=== PATIENT | male | born 1965 | race Caucasian/White ===

== ENCOUNTER 2021-08-23 07:57 | Emergency (ER) | payer MEDICARE ==
[~2021-08-23] VITALS: Ht 180.3 cm; Wt 115.7 kg
[~2021-08-23 07:57] MED LIST: EPIPEN0.3 MG/0.3 IM; Prednisone20 MG PO
[2021-08-23] MEDS ORDERED: PLAVIX75 MG PO (08:33)
[2021-08-23] MEDS ORDERED: HYDHCL25 PO (09:43)
== END 2021-08-23 09:53 | disposition home or self-care (01) ==
LOC: ER 07:57
DX: L27.0 Generalized skin eruption due to drugs and medicaments taken internally (principal); T45.525A Adverse effect of antithrombotic drugs, initial encounter; R60.0 Localized edema; Y92.9 Unspecified place or not applicable; Z87.891 Personal history of nicotine dependence
CPT/HCPCS: A9270

== ENCOUNTER 2021-09-03 01:53 | Emergency (ER) | payer MEDICARE ==
[~2021-09-03] VITALS: Ht 180.3 cm; Wt 113.4 kg
[~2021-09-03 01:53] MED LIST changes: +HYDHCL25 PO; +PLAVIX75 MG PO
[2021-09-03 02:33] LABS: BASOPHILS ABSOLUTE AUTO 0.07 K/mm3 (0.00-0.23); BASOPHILS PERCENT AUTO 0 % (0-2); EOSINOPHILS ABSOLUTE AUTO 0.11 K/mm3 (0.00-0.68); EOSINOPHILS PERCENT AUTO 1 % (0-6); Hematocrit 38.4 % (37.0-53.0); Hemoglobin 13.1 g/dL (13.5-17.5); IMMATURE GRAN ABSOLUTE AUTO 0.24 K/mm3 (0.00-0.10); IMMATURE GRAN PERCENT AUTO 1 % (0-1); LYMPHOCYTES ABSOLUTE AUTO 0.92 K/mm3 (0.84-5.20); LYMPHOCYTES PERCENT AUTO 5 % (21-46); MONOCYTES ABSOLUTE AUTO 0.97 K/mm3 (0.16-1.47); MONOCYTES PERCENT AUTO 6 % (4-13); Mean Corpuscular HGB 28.5 pg (26.0-34.0); Mean Corpuscular HGB Conc 34.1 g/dL (31.5-36.5); Mean Corpuscular Volume 84 fL (80-100); Mean Platelet Volume 8.8 fL (9.1-12.4); NEUTROPHILS ABSOLUTE AUTO 14.84 K/mm3 (1.96-9.15); NEUTROPHILS PERCENT AUTO 87 % (41-73); Platelet Count 279 K/mm3 (150-400); RDW Coefficient Variation 14.8 % (11.7-14.2); RDW Standard Deviation 45.1 fL (35.1-46.3); White Blood Cell Count 17.15 K/mm3 (4.00-11.30)
[2021-09-03 03:03] LABS: Albumin, Blood 2.3 g/dL (3.4-5.0); Albumin/Globulin Ratio 0.5 (0.8-1.8); Bilirubin, Total 1.3 mg/dL (0.1-1.0); Bun/Creatinine Ratio 15.5 (12.0-20.0); Calcium, Blood 8.6 mg/dL (8.5-10.1); Creatinine, Blood 1.16 mg/dL (0.60-1.20); Globulin, Blood 4.6 g/dL (2.2-4.0); Potassium, Blood 3.6 mmol/L (3.5-5.5); Total Protein, Blood 6.9 g/dL (6.4-8.2)
[2021-09-03 04:54] LABS: Influenza A, PCR NEGATIVE (NEGATIVE); Influenza B, PCR NEGATIVE (NEGATIVE); Resp Syncytial Virus, PCR NEGATIVE (NEGATIVE); SARS-Cov-2 (COVID-19) PCR, MMC NEGATIVE (NEGATIVE)
== END 2021-09-03 07:06 | disposition short-term general hospital (02) ==
LOC: ER 01:53
PROVIDERS: Student in an Organized Health Care Education/Training Program
DX: I72.9 Aneurysm of unspecified site (principal); I82.411 Acute embolism and thrombosis of right femoral vein; R00.0 Tachycardia, unspecified; D72.829 Elevated white blood cell count, unspecified; E87.2 Acidosis; Z88.0 Allergy status to penicillin; Z91.09 Other allergy status, other than to drugs and biological substances; Z79.52 Long term (current) use of systemic steroids; Z79.899 Other long term (current) drug therapy; Z20.822 Contact with and (suspected) exposure to COVID-19
CPT/HCPCS: 0241U; 36415; 71045; 75635; 80053; 83605; 85025; 87040; 87147; 96374-59; 96375-59; 96376-59; 99285-25; J0696; J1170; J1885; J2405; J3370; J7030; J7050; Q9967

== ENCOUNTER 2021-09-24 03:34 | Day surgery (SDC) | payer MEDICARE ==
[~2021-09-24 03:34] MED LIST changes: +AMITRIPTYLINE100 M2 PO; +ASPI81CH PO; +Acetaminophen325 M1 PO; +Calcium Carbon500 MG PO; +Crestor40 MG PO; +DULO60 PO; +FAMO40 PO; +LISI20 PO; +OXYC5 PO; +TRAM50 PO
== END 2021-09-24 10:45 | disposition home or self-care (01) ==
LOC: ATC 03:34
DX: T82.7XXA Infection and inflammatory reaction due to other cardiac and vascular devices, implants and grafts, initial encounter (principal); Y71.8 Miscellaneous cardiovascular devices associated with adverse incidents, not elsewhere classified; I25.10 Atherosclerotic heart disease of native coronary artery without angina pectoris; I10 Essential (primary) hypertension; E78.5 Hyperlipidemia, unspecified; Z87.891 Personal history of nicotine dependence; Z79.899 Other long term (current) drug therapy
CPT/HCPCS: 96374; J0696

== ENCOUNTER 2021-09-24 03:35 | Day surgery (SDC) | payer MEDICARE | END 2021-09-24 23:03 | disposition home or self-care (01) | LOC: WOUND 03:35 | DX: S31.104A Unspecified open wound of abdominal wall, left lower quadrant without penetration into peritoneal cavity, initial encounter (principal); S31.103A Unspecified open wound of abdominal wall, right lower quadrant without penetration into peritoneal cavity, initial encounter; S71.102A Unspecified open wound, left thigh, initial encounter; X58.XXXA Exposure to other specified factors, initial encounter; L02.214 Cutaneous abscess of groin; I73.9 Peripheral vascular disease, unspecified; I87.2 Venous insufficiency (chronic) (peripheral); F12.90 Cannabis use, unspecified, uncomplicated; I10 Essential (primary) hypertension; E78.5 Hyperlipidemia, unspecified; Z88.0 Allergy status to penicillin; Z87.891 Personal history of nicotine dependence | CPT/HCPCS: G0463 ==

== ENCOUNTER 2021-09-25 01:36 | Day surgery (SDC) | payer MEDICARE | END 2021-09-25 13:38 | disposition home or self-care (01) | LOC: ATC 01:36 | DX: T82.7XXA Infection and inflammatory reaction due to other cardiac and vascular devices, implants and grafts, initial encounter (principal); Z79.82 Long term (current) use of aspirin; Z79.01 Long term (current) use of anticoagulants; I25.10 Atherosclerotic heart disease of native coronary artery without angina pectoris; E78.5 Hyperlipidemia, unspecified; I10 Essential (primary) hypertension; Z87.891 Personal history of nicotine dependence | CPT/HCPCS: 96374; J0696 ==

== ENCOUNTER 2021-09-26 00:48 | Day surgery (SDC) | payer MEDICARE | END 2021-09-26 22:54 | disposition home or self-care (01) | LOC: WOUND 00:48 | DX: S31.103A Unspecified open wound of abdominal wall, right lower quadrant without penetration into peritoneal cavity, initial encounter (principal); X58.XXXA Exposure to other specified factors, initial encounter; I73.9 Peripheral vascular disease, unspecified; I87.2 Venous insufficiency (chronic) (peripheral); F12.90 Cannabis use, unspecified, uncomplicated ==

== ENCOUNTER 2021-09-26 00:58 | Day surgery (SDC) | payer MEDICARE | END 2021-09-26 14:10 | disposition home or self-care (01) | LOC: ATC 00:58 | DX: T82.7XXA Infection and inflammatory reaction due to other cardiac and vascular devices, implants and grafts, initial encounter (principal); I25.10 Atherosclerotic heart disease of native coronary artery without angina pectoris; E78.5 Hyperlipidemia, unspecified; I10 Essential (primary) hypertension; Z87.891 Personal history of nicotine dependence; Z79.82 Long term (current) use of aspirin; Z79.01 Long term (current) use of anticoagulants | CPT/HCPCS: 96374; J0696 ==

== ENCOUNTER 2021-09-27 13:55 | Day surgery (SDC) | payer MEDICARE | END 2021-09-27 14:02 | disposition home or self-care (01) | LOC: ATC 13:55 | DX: T82.7XXA Infection and inflammatory reaction due to other cardiac and vascular devices, implants and grafts, initial encounter (principal); Y71.8 Miscellaneous cardiovascular devices associated with adverse incidents, not elsewhere classified; I25.10 Atherosclerotic heart disease of native coronary artery without angina pectoris; I10 Essential (primary) hypertension; E78.5 Hyperlipidemia, unspecified; Z87.891 Personal history of nicotine dependence; Z79.899 Other long term (current) drug therapy | CPT/HCPCS: 96374; J0696 ==

== ENCOUNTER 2021-09-28 13:40 | Day surgery (SDC) | payer MEDICARE | END 2021-09-28 13:48 | disposition home or self-care (01) | LOC: ATC 13:40 | DX: T82.7XXA Infection and inflammatory reaction due to other cardiac and vascular devices, implants and grafts, initial encounter (principal); Y71.8 Miscellaneous cardiovascular devices associated with adverse incidents, not elsewhere classified; I25.10 Atherosclerotic heart disease of native coronary artery without angina pectoris; I10 Essential (primary) hypertension; E78.5 Hyperlipidemia, unspecified; Z87.891 Personal history of nicotine dependence; Z79.02 Long term (current) use of antithrombotics/antiplatelets; Z79.899 Other long term (current) drug therapy | CPT/HCPCS: 96374; J0696 ==

== ENCOUNTER 2021-09-29 01:03 | Day surgery (SDC) | payer MEDICARE | END 2021-09-29 14:16 | disposition home or self-care (01) | LOC: ATC 01:03 | DX: T82.7XXA Infection and inflammatory reaction due to other cardiac and vascular devices, implants and grafts, initial encounter (principal); Z79.82 Long term (current) use of aspirin; Z79.01 Long term (current) use of anticoagulants; I25.10 Atherosclerotic heart disease of native coronary artery without angina pectoris; E78.5 Hyperlipidemia, unspecified; I10 Essential (primary) hypertension; Z87.891 Personal history of nicotine dependence | CPT/HCPCS: 96374; J0696 ==

== ENCOUNTER 2021-09-29 08:00 | Day surgery (SDC) | payer MEDICARE | END 2021-09-29 23:59 | disposition home or self-care (01) | LOC: WOUND 08:00 | DX: S31.501A Unspecified open wound of unspecified external genital organs, male, initial encounter (principal); X58.XXXA Exposure to other specified factors, initial encounter; I73.9 Peripheral vascular disease, unspecified; I87.2 Venous insufficiency (chronic) (peripheral); F12.90 Cannabis use, unspecified, uncomplicated | CPT/HCPCS: 82947; A9270; G0463 ==

== ENCOUNTER 2021-09-30 03:23 | Day surgery (SDC) | payer MEDICARE ==
[2021-09-30 14:42] LABS: BASOPHILS ABSOLUTE AUTO 0.07 K/mm3 (0.00-0.23); BASOPHILS PERCENT AUTO 1 % (0-2); EOSINOPHILS ABSOLUTE AUTO 0.57 K/mm3 (0.00-0.68); EOSINOPHILS PERCENT AUTO 5 % (0-6); Hematocrit 34.9 % (37.0-53.0); Hemoglobin 10.9 g/dL (13.5-17.5); IMMATURE GRAN ABSOLUTE AUTO 0.24 K/mm3 (0.00-0.10); IMMATURE GRAN PERCENT AUTO 2 % (0-1); LYMPHOCYTES ABSOLUTE AUTO 2.63 K/mm3 (0.84-5.20); LYMPHOCYTES PERCENT AUTO 24 % (21-46); MONOCYTES ABSOLUTE AUTO 1.03 K/mm3 (0.16-1.47); MONOCYTES PERCENT AUTO 9 % (4-13); Mean Corpuscular HGB 27.3 pg (26.0-34.0); Mean Corpuscular HGB Conc 31.2 g/dL (31.5-36.5); Mean Corpuscular Volume 87 fL (80-100); Mean Platelet Volume 8.9 fL (9.1-12.4); NEUTROPHILS ABSOLUTE AUTO 6.51 K/mm3 (1.96-9.15); NEUTROPHILS PERCENT AUTO 59 % (41-73); Platelet Count 731 K/mm3 (150-400); RDW Coefficient Variation 15.5 % (11.7-14.2); RDW Standard Deviation 49.2 fL (35.1-46.3); White Blood Cell Count 11.05 K/mm3 (4.00-11.30)
[2021-09-30 14:54] LABS: Albumin, Blood 2.6 g/dL (3.4-5.0); Albumin/Globulin Ratio 0.6 (0.8-1.8); Bilirubin, Total 0.2 mg/dL (0.1-1.0); Bun/Creatinine Ratio 18.8 (12.0-20.0); C-REACTIVE PROTEIN, EXT RANGE 2.69 mg/dL (0.000-0.300); Calcium, Blood 9.2 mg/dL (8.5-10.1); Creatinine, Blood 0.8 mg/dL (0.60-1.20); Globulin, Blood 4.4 g/dL (2.2-4.0); Potassium, Blood 4.2 mmol/L (3.5-5.5)
== END 2021-09-30 13:50 | disposition home or self-care (01) ==
LOC: ATC 03:23
PROVIDERS: Internal Medicine Infectious Disease
DX: T82.7XXA Infection and inflammatory reaction due to other cardiac and vascular devices, implants and grafts, initial encounter (principal); Y71.8 Miscellaneous cardiovascular devices associated with adverse incidents, not elsewhere classified; I25.10 Atherosclerotic heart disease of native coronary artery without angina pectoris; I10 Essential (primary) hypertension; E78.5 Hyperlipidemia, unspecified; Z87.891 Personal history of nicotine dependence; Z79.899 Other long term (current) drug therapy
CPT/HCPCS: 80053; 85025; 85651; 86140; 96374; J0696

== ENCOUNTER 2021-10-01 00:26 | Day surgery (SDC) | payer MEDICARE | END 2021-10-01 13:46 | disposition home or self-care (01) | LOC: ATC 00:26 | DX: T82.7XXA Infection and inflammatory reaction due to other cardiac and vascular devices, implants and grafts, initial encounter (principal); Y71.8 Miscellaneous cardiovascular devices associated with adverse incidents, not elsewhere classified; I25.10 Atherosclerotic heart disease of native coronary artery without angina pectoris; I10 Essential (primary) hypertension; E78.5 Hyperlipidemia, unspecified; Z87.891 Personal history of nicotine dependence; Z79.899 Other long term (current) drug therapy | CPT/HCPCS: 96374; J0696 ==

== ENCOUNTER 2021-10-01 00:28 | Day surgery (SDC) | payer MEDICARE | END 2021-10-01 22:41 | disposition home or self-care (01) | LOC: WOUND 00:28 | DX: S31.104A Unspecified open wound of abdominal wall, left lower quadrant without penetration into peritoneal cavity, initial encounter (principal); S31.103A Unspecified open wound of abdominal wall, right lower quadrant without penetration into peritoneal cavity, initial encounter; S71.102A Unspecified open wound, left thigh, initial encounter; S71.101A Unspecified open wound, right thigh, initial encounter; X58.XXXA Exposure to other specified factors, initial encounter; I73.9 Peripheral vascular disease, unspecified; I87.2 Venous insufficiency (chronic) (peripheral); F12.90 Cannabis use, unspecified, uncomplicated ==

== ENCOUNTER 2021-10-03 00:28 | Day surgery (SDC) | payer MEDICARE | END 2021-10-03 14:24 | disposition home or self-care (01) | LOC: ATC 00:28 | DX: T82.7XXA Infection and inflammatory reaction due to other cardiac and vascular devices, implants and grafts, initial encounter (principal); Y82.9 Unspecified medical devices associated with adverse incidents | CPT/HCPCS: 96374; J0696 ==

== ENCOUNTER 2021-10-03 01:49 | Day surgery (SDC) | payer MEDICARE | END 2021-10-03 22:45 | disposition home or self-care (01) | LOC: WOUND 01:49 | DX: S31.501A Unspecified open wound of unspecified external genital organs, male, initial encounter (principal); I87.2 Venous insufficiency (chronic) (peripheral); F12.90 Cannabis use, unspecified, uncomplicated | CPT/HCPCS: G0463 ==

== ENCOUNTER 2021-10-04 10:52 | Day surgery (SDC) | payer MEDICARE | END 2021-10-04 11:15 | disposition home or self-care (01) | LOC: ATC 10:52 | DX: T82.7XXA Infection and inflammatory reaction due to other cardiac and vascular devices, implants and grafts, initial encounter (principal); Y71.8 Miscellaneous cardiovascular devices associated with adverse incidents, not elsewhere classified | CPT/HCPCS: J0696 ==

== ENCOUNTER 2021-10-06 02:27 | Day surgery (SDC) | payer MEDICARE | END 2021-10-06 13:34 | disposition home or self-care (01) | LOC: ATC 02:27 | DX: T82.7XXA Infection and inflammatory reaction due to other cardiac and vascular devices, implants and grafts, initial encounter (principal); Y71.8 Miscellaneous cardiovascular devices associated with adverse incidents, not elsewhere classified; I25.10 Atherosclerotic heart disease of native coronary artery without angina pectoris; I10 Essential (primary) hypertension; E78.5 Hyperlipidemia, unspecified; Z87.891 Personal history of nicotine dependence | CPT/HCPCS: J0696 ==

== ENCOUNTER 2021-10-07 04:54 | Day surgery (SDC) | payer MEDICARE ==
[2021-10-07 14:52] LABS: BASOPHILS ABSOLUTE AUTO 0.05 K/mm3 (0.00-0.23); BASOPHILS PERCENT AUTO 1 % (0-2); EOSINOPHILS ABSOLUTE AUTO 0.29 K/mm3 (0.00-0.68); EOSINOPHILS PERCENT AUTO 3 % (0-6); Hematocrit 36.9 % (37.0-53.0); Hemoglobin 11.4 g/dL (13.5-17.5); IMMATURE GRAN ABSOLUTE AUTO 0.11 K/mm3 (0.00-0.10); IMMATURE GRAN PERCENT AUTO 1 % (0-1); LYMPHOCYTES PERCENT AUTO 21 % (21-46); MONOCYTES ABSOLUTE AUTO 0.94 K/mm3 (0.16-1.47); MONOCYTES PERCENT AUTO 9 % (4-13); Mean Corpuscular HGB 27.2 pg (26.0-34.0); Mean Corpuscular HGB Conc 30.9 g/dL (31.5-36.5); Mean Corpuscular Volume 88 fL (80-100); Mean Platelet Volume 8.9 fL (9.1-12.4); NEUTROPHILS PERCENT AUTO 66 % (41-73); Platelet Count 495 K/mm3 (150-400); RDW Coefficient Variation 16.1 % (11.7-14.2); RDW Standard Deviation 52.1 fL (35.1-46.3); Red Blood Cell Count 4.19 M/mm3 (4.30-5.90); White Blood Cell Count 10.99 K/mm3 (4.00-11.30)
[2021-10-07 14:56] LABS: C-REACTIVE PROTEIN, EXT RANGE 2.35 mg/dL (0.000-0.300)
[2021-10-07 14:59] LABS: Albumin, Blood 2.6 g/dL (3.4-5.0); Albumin/Globulin Ratio 0.6 (0.8-1.8); Bilirubin, Total 0.2 mg/dL (0.1-1.0); Bun/Creatinine Ratio 18.5 (12.0-20.0); Creatinine, Blood 0.81 mg/dL (0.60-1.20); Globulin, Blood 4.2 g/dL (2.2-4.0); Potassium, Blood 4.1 mmol/L (3.5-5.5); Total Protein, Blood 6.8 g/dL (6.4-8.2)
== END 2021-10-07 14:00 | disposition home or self-care (01) ==
LOC: ATC 04:54
PROVIDERS: Internal Medicine Infectious Disease
DX: T82.7XXA Infection and inflammatory reaction due to other cardiac and vascular devices, implants and grafts, initial encounter (principal); Y83.2 Surgical operation with anastomosis, bypass or graft as the cause of abnormal reaction of the patient, or of later complication, without mention of misadventure at the time of the procedure; I25.10 Atherosclerotic heart disease of native coronary artery without angina pectoris; I10 Essential (primary) hypertension; E78.5 Hyperlipidemia, unspecified; Z87.891 Personal history of nicotine dependence
CPT/HCPCS: 80053; 85025; 85651; 86140; J0696

== ENCOUNTER 2021-10-08 01:25 | Day surgery (SDC) | payer MEDICARE | END 2021-10-08 13:30 | disposition home or self-care (01) | LOC: ATC 01:25 | DX: T82.7XXA Infection and inflammatory reaction due to other cardiac and vascular devices, implants and grafts, initial encounter (principal); I25.10 Atherosclerotic heart disease of native coronary artery without angina pectoris; E78.5 Hyperlipidemia, unspecified; I10 Essential (primary) hypertension; Z87.891 Personal history of nicotine dependence; Z79.02 Long term (current) use of antithrombotics/antiplatelets; Z79.899 Other long term (current) drug therapy | CPT/HCPCS: 96374; J0696 ==

== ENCOUNTER 2021-10-08 01:29 | Day surgery (SDC) | payer MEDICARE | END 2021-10-08 22:42 | disposition home or self-care (01) | LOC: WOUND 01:29 | DX: S31.104A Unspecified open wound of abdominal wall, left lower quadrant without penetration into peritoneal cavity, initial encounter (principal); S31.103A Unspecified open wound of abdominal wall, right lower quadrant without penetration into peritoneal cavity, initial encounter; S71.102A Unspecified open wound, left thigh, initial encounter; S81.801A Unspecified open wound, right lower leg, initial encounter; X58.XXXA Exposure to other specified factors, initial encounter; I73.9 Peripheral vascular disease, unspecified; I87.2 Venous insufficiency (chronic) (peripheral); F12.90 Cannabis use, unspecified, uncomplicated | CPT/HCPCS: A9270; G0463 ==

== ENCOUNTER 2021-10-09 00:12 | Day surgery (SDC) | payer MEDICARE | END 2021-10-09 13:51 | disposition home or self-care (01) | LOC: ATC 00:12 | DX: T82.7XXA Infection and inflammatory reaction due to other cardiac and vascular devices, implants and grafts, initial encounter (principal); Y71.8 Miscellaneous cardiovascular devices associated with adverse incidents, not elsewhere classified | CPT/HCPCS: 96374; J0696 ==

== ENCOUNTER 2021-10-10 03:25 | Day surgery (SDC) | payer MEDICARE | END 2021-10-10 13:49 | disposition home or self-care (01) | LOC: ATC 03:25 | DX: T82.7XXA Infection and inflammatory reaction due to other cardiac and vascular devices, implants and grafts, initial encounter (principal); Y71.8 Miscellaneous cardiovascular devices associated with adverse incidents, not elsewhere classified | CPT/HCPCS: 96374; J0696 ==

== ENCOUNTER 2021-10-11 10:34 | Day surgery (SDC) | payer MEDICARE | END 2021-10-11 10:46 | disposition home or self-care (01) | LOC: ATC 10:34 | DX: T82.7XXA Infection and inflammatory reaction due to other cardiac and vascular devices, implants and grafts, initial encounter (principal); Y71.8 Miscellaneous cardiovascular devices associated with adverse incidents, not elsewhere classified | CPT/HCPCS: 96374; J0696 ==

== ENCOUNTER 2021-10-12 10:48 | Day surgery (SDC) | payer MEDICARE | END 2021-10-12 10:58 | disposition home or self-care (01) | LOC: ATC 10:48 | DX: T82.7XXA Infection and inflammatory reaction due to other cardiac and vascular devices, implants and grafts, initial encounter (principal); I25.10 Atherosclerotic heart disease of native coronary artery without angina pectoris; E78.5 Hyperlipidemia, unspecified; I10 Essential (primary) hypertension; M19.90 Unspecified osteoarthritis, unspecified site; Z89.011 Acquired absence of right thumb; Z87.891 Personal history of nicotine dependence; Y82.8 Other medical devices associated with adverse incidents | CPT/HCPCS: 96374; J0696 ==

== ENCOUNTER 2021-10-13 10:42 | Day surgery (SDC) | payer MEDICARE | END 2021-10-13 11:17 | disposition home or self-care (01) | LOC: ATC 10:42 | DX: T82.7XXA Infection and inflammatory reaction due to other cardiac and vascular devices, implants and grafts, initial encounter (principal); I25.10 Atherosclerotic heart disease of native coronary artery without angina pectoris; I10 Essential (primary) hypertension; E78.5 Hyperlipidemia, unspecified; Z87.891 Personal history of nicotine dependence; Z79.01 Long term (current) use of anticoagulants | CPT/HCPCS: 96374; J0696 ==

== ENCOUNTER 2021-10-15 08:00 | Day surgery (SDC) | payer MEDICARE | END 2021-10-15 23:59 | disposition home or self-care (01) | LOC: WOUND 08:00 | DX: T81.89XA Other complications of procedures, not elsewhere classified, initial encounter (principal); S31.104A Unspecified open wound of abdominal wall, left lower quadrant without penetration into peritoneal cavity, initial encounter; S31.103A Unspecified open wound of abdominal wall, right lower quadrant without penetration into peritoneal cavity, initial encounter; S71.102A Unspecified open wound, left thigh, initial encounter; S81.801A Unspecified open wound, right lower leg, initial encounter; I73.9 Peripheral vascular disease, unspecified; I87.2 Venous insufficiency (chronic) (peripheral); F12.90 Cannabis use, unspecified, uncomplicated; Z95.820 Peripheral vascular angioplasty status with implants and grafts; Y83.9 Surgical procedure, unspecified as the cause of abnormal reaction of the patient, or of later complication, without mention of misadventure at the time of the procedure | CPT/HCPCS: G0463 ==

== ENCOUNTER 2021-10-22 03:40 | Day surgery (SDC) | payer MEDICARE ==
[2021-10-23] MEDS ORDERED: Naprosyn500 MG PO (11:06)
== END 2021-10-22 23:54 ==
LOC: WOUND 03:40
DX: S31.104A Unspecified open wound of abdominal wall, left lower quadrant without penetration into peritoneal cavity, initial encounter (principal); S31.103A Unspecified open wound of abdominal wall, right lower quadrant without penetration into peritoneal cavity, initial encounter; S71.102A Unspecified open wound, left thigh, initial encounter; S71.101A Unspecified open wound, right thigh, initial encounter; X58.XXXA Exposure to other specified factors, initial encounter; I73.9 Peripheral vascular disease, unspecified; I87.2 Venous insufficiency (chronic) (peripheral); F12.90 Cannabis use, unspecified, uncomplicated
CPT/HCPCS: A9270; G0463

== ENCOUNTER 2021-10-23 08:26 | Emergency (ER) | payer MEDICARE, OTHER ==
[~2021-10-23] VITALS: Ht 180.3 cm; Wt 104.3 kg
[2021-10-23 08:53] LABS: BASOPHILS ABSOLUTE AUTO 0.07 K/mm3 (0.00-0.23); BASOPHILS PERCENT AUTO 1 % (0-2); EOSINOPHILS ABSOLUTE AUTO 0.49 K/mm3 (0.00-0.68); EOSINOPHILS PERCENT AUTO 4 % (0-6); Hematocrit 43.8 % (37.0-53.0); Hemoglobin 13.8 g/dL (13.5-17.5); IMMATURE GRAN ABSOLUTE AUTO 0.12 K/mm3 (0.00-0.10); IMMATURE GRAN PERCENT AUTO 1 % (0-1); LYMPHOCYTES ABSOLUTE AUTO 2.24 K/mm3 (0.84-5.20); LYMPHOCYTES PERCENT AUTO 19 % (21-46); MONOCYTES ABSOLUTE AUTO 0.96 K/mm3 (0.16-1.47); MONOCYTES PERCENT AUTO 8 % (4-13); Mean Corpuscular HGB 26.4 pg (26.0-34.0); Mean Corpuscular HGB Conc 31.5 g/dL (31.5-36.5); Mean Corpuscular Volume 84 fL (80-100); Mean Platelet Volume 8.6 fL (9.1-12.4); NEUTROPHILS ABSOLUTE AUTO 7.69 K/mm3 (1.96-9.15); NEUTROPHILS PERCENT AUTO 67 % (41-73); Platelet Count 503 K/mm3 (150-400); RDW Coefficient Variation 15.6 % (11.7-14.2); RDW Standard Deviation 47.3 fL (35.1-46.3); Red Blood Cell Count 5.23 M/mm3 (4.30-5.90); White Blood Cell Count 11.57 K/mm3 (4.00-11.30)
[2021-10-23 09:12] LABS: Albumin/Globulin Ratio 0.7 (0.8-1.8); Bilirubin, Total 0.2 mg/dL (0.1-1.0); Bun/Creatinine Ratio 21.1 (12.0-20.0); Calcium, Blood 9.5 mg/dL (8.5-10.1); Creatinine, Blood 0.81 mg/dL (0.60-1.20); Globulin, Blood 4.3 g/dL (2.2-4.0); Potassium, Blood 4.4 mmol/L (3.5-5.5); Total Protein, Blood 7.3 g/dL (6.4-8.2)
[2021-10-23] MEDS ORDERED: Naprosyn500 MG PO (11:06)
== END 2021-10-23 11:29 | disposition home or self-care (01) ==
LOC: ER 08:26
PROVIDERS: Physician Assistant
DX: R07.89 Other chest pain (principal); Z88.0 Allergy status to penicillin; Z91.09 Other allergy status, other than to drugs and biological substances; Z79.899 Other long term (current) drug therapy; Z79.82 Long term (current) use of aspirin
CPT/HCPCS: 71046; 80053; 84484; 85025; 93005; 93010; 96361; 96374; 99284-25; J1885; J7030

== ENCOUNTER 2021-10-29 07:47 | Day surgery (SDC) | payer MEDICARE, OTHER ==
[~2021-10-29 07:47] MED LIST changes: +Naprosyn500 MG PO
== END 2021-10-31 23:05 | disposition home or self-care (01) ==
LOC: WOUND 07:47
DX: S31.103A Unspecified open wound of abdominal wall, right lower quadrant without penetration into peritoneal cavity, initial encounter (principal); S31.501A Unspecified open wound of unspecified external genital organs, male, initial encounter; F12.90 Cannabis use, unspecified, uncomplicated; I87.2 Venous insufficiency (chronic) (peripheral); I73.9 Peripheral vascular disease, unspecified; X58.XXXA Exposure to other specified factors, initial encounter

== ENCOUNTER 2021-11-05 00:53 | Day surgery (SDC) | payer MEDICARE, OTHER | END 2021-11-05 23:29 | disposition home or self-care (01) | LOC: WOUND 00:53 | DX: I73.9 Peripheral vascular disease, unspecified (principal); I87.2 Venous insufficiency (chronic) (peripheral); F12.90 Cannabis use, unspecified, uncomplicated; L02.214 Cutaneous abscess of groin; S71.102A Unspecified open wound, left thigh, initial encounter; S81.801A Unspecified open wound, right lower leg, initial encounter; X58.XXXA Exposure to other specified factors, initial encounter | CPT/HCPCS: A9270; G0463 ==

== ENCOUNTER 2021-11-19 00:19 | Day surgery (SDC) | payer MEDICARE, OTHER | END 2021-11-19 23:00 | disposition home or self-care (01) | LOC: WOUND 00:19 | DX: S31.103A Unspecified open wound of abdominal wall, right lower quadrant without penetration into peritoneal cavity, initial encounter (principal); S71.102A Unspecified open wound, left thigh, initial encounter; S81.801A Unspecified open wound, right lower leg, initial encounter; S31.501A Unspecified open wound of unspecified external genital organs, male, initial encounter; X58.XXXA Exposure to other specified factors, initial encounter; I73.9 Peripheral vascular disease, unspecified; I87.2 Venous insufficiency (chronic) (peripheral); F12.90 Cannabis use, unspecified, uncomplicated | CPT/HCPCS: G0463 ==

== ENCOUNTER 2021-12-03 01:46 | Day surgery (SDC) | payer MEDICARE | END 2021-12-03 23:22 | disposition home or self-care (01) | LOC: WOUND 01:46 | DX: T81.31XD Disruption of external operation (surgical) wound, not elsewhere classified, subsequent encounter (principal); I73.9 Peripheral vascular disease, unspecified; I87.2 Venous insufficiency (chronic) (peripheral); Z95.820 Peripheral vascular angioplasty status with implants and grafts | CPT/HCPCS: G0463 ==

== ENCOUNTER 2021-12-17 06:29 | Day surgery (SDC) | payer MEDICARE | END 2021-12-17 23:26 | disposition home or self-care (01) | LOC: WOUND 06:29 | DX: S31.501A Unspecified open wound of unspecified external genital organs, male, initial encounter (principal); X58.XXXS Exposure to other specified factors, sequela; I73.9 Peripheral vascular disease, unspecified; I87.2 Venous insufficiency (chronic) (peripheral); F12.90 Cannabis use, unspecified, uncomplicated | CPT/HCPCS: G0463 ==